=== PATIENT | male | born 1965 | race Caucasian/White ===

== ENCOUNTER 2016-09-28 10:49 | Inpatient (IN) | payer OTHER, BC ==
[~2016-09-28] VITALS: Ht 172.7 cm; Wt 132.9 kg
[2016-09-28] MEDS ORDERED: OPTIRAY 350 100 ML VIAL HMH IV ONE (10:50)
[2016-09-28] MEDS ORDERED: NEB-ALBUTEROL 2.5 MG/3 ML INH ONE ×3 (12:49)
[2016-09-28] MEDS ORDERED: METHYLPRED SOD SUCC 125 MG/2 ML VIAL ONE (13:10)
[2016-09-28] MEDS ORDERED: ONDANSETRON 4 MG VIAL IV PRN (15:50)
[2016-09-28] MEDS ORDERED: SALINE FLUSH 10 ML FLUSH PRN (15:50)
[2016-09-28] MEDS ORDERED: BISACODYL EC 5 MG TAB PO PRN (15:50)
[2016-09-28] MEDS ORDERED: ALU/MAG/SIM 30 ML UDC PO PRN (15:50)
[2016-09-28] MEDS ORDERED: MAG HYDROX 30 ML UDC PO PRN (15:50)
[2016-09-28] MEDS ORDERED: ACETAMINOPHEN 325 MG TAB PO PRN (15:50)
[2016-09-28] MEDS ORDERED: BISACODYL 10 MG SUPP RECTAL PRN (15:50)
[2016-09-28] MEDS ORDERED: DUONEB INH ONE (16:57)
[2016-09-28 17:12] VITALS: RESP 20
[2016-09-28 17:18] VITALS: BP_SYST 108; BP_SYST 112; RESP 18; TEMP 98.1
[2016-09-28 17:19] VITALS: Ht 172.7 cm; Wt 132.9 kg
[2016-09-28] MEDS ORDERED: PNEUMO VAC 25 MCG/0.5 ML VL IM.VACC ONE (17:25)
[2016-09-28] MEDS: METHYLPRED SOD SUCC 40 MG VIAL IV SCH ×2 (18:30→23:48)
[2016-09-28 19:15] VITALS: BP_SYST 131; RESP 20; TEMP 97.6
[2016-09-28] MEDS: DUONEB INH SCH ×2 (20:14→23:35)
[2016-09-28] MEDS: NEB-BUDESONIDE 0.5 MG INH SCH (20:14)
[2016-09-28] MEDS: NEB-BROVANA 15 MCG/2 ML INH SCH (20:14)
[2016-09-28] MEDS ORDERED: FAMOTIDINE 20 MG TAB PO SCH (21:00)
[2016-09-28] MEDS: MONTELUKAST 10 MG TAB PO SCH (21:42)
[2016-09-28] MEDS: Cetirizine/PSE 12-Hour Tab PO SCH (21:42)
[2016-09-28] MEDS: LACTOBACILLUS ACIDOPH CAP PO SCH (21:42)
[2016-09-28] MEDS: SALINE FLUSH 10 ML FLUSH SCH (21:43)
[2016-09-28 22:58] VITALS: BP_SYST 108; RESP 18; TEMP 97.2
[2016-09-29 02:02] VITALS: BP_SYST 110; RESP 20; TEMP 97.5
[2016-09-29] MEDS: DUONEB INH SCH ×6 (03:00→23:24)
[2016-09-29] MEDS ORDERED: PANTOPRAZOLE 20 MG TAB PO SCH (07:00)
[2016-09-29] MEDS: NEB-BUDESONIDE 0.5 MG INH SCH ×2 (07:30→19:13)
[2016-09-29] MEDS: NEB-BROVANA 15 MCG/2 ML INH SCH ×2 (07:30→19:13)
[2016-09-29] MEDS: SALINE FLUSH 10 ML FLUSH SCH ×2 (07:43→21:35)
[2016-09-29 07:44] VITALS: BP_SYST 123; RESP 20; TEMP 97.6
[2016-09-29] MEDS: SODIUM CHLORIDE 0.9% FLUSH BAG 500 ML IV SCH (07:44)
[2016-09-29] MEDS: METHYLPRED SOD SUCC 40 MG VIAL IV SCH ×3 (07:44→23:24)
[2016-09-29] MEDS ORDERED: LISINOPRIL/HCTZ 20/12.5 TAB PO SCH (09:00)
[2016-09-29] MEDS: LACTOBACILLUS ACIDOPH CAP PO SCH ×2 (10:53→21:35)
[2016-09-29] MEDS: Cetirizine/PSE 12-Hour Tab PO SCH ×2 (10:54→21:35)
[2016-09-29] MEDS: FLUTICASONE 0.05% NA BTL NARE EACH SCH (10:58)
[2016-09-29 11:17] VITALS: BP_SYST 117; RESP 18; TEMP 97.9
[2016-09-29] MEDS: SUCRALFATE 1GM/10ML SUSP PO SCH (15:56)
[2016-09-29] MEDS: PANTOPRAZOLE 40 MG TAB PO SCH (15:56)
[2016-09-29 16:07] VITALS: BP_SYST 124; RESP 20; TEMP 97.7
[2016-09-29 19:23] VITALS: BP_SYST 96; RESP 20; TEMP 97.5
[2016-09-29] MEDS: Finasteride 5 MG TAB PO SCH (21:34)
[2016-09-29] MEDS: MONTELUKAST 10 MG TAB PO SCH (21:35)
[2016-09-29] MEDS: TAMSULOSIN 0.4 MG CAP PO SCH (21:35)
[2016-09-29 22:49] VITALS: BP_SYST 118; RESP 20; TEMP 98.2
[2016-09-30] MEDS: DUONEB INH SCH ×2 (02:18→07:31)
[2016-09-30 03:30] VITALS: BP_SYST 109; RESP 20; TEMP 97.7
[2016-09-30] MEDS: SODIUM CHLORIDE 0.9% FLUSH BAG 500 ML IV SCH (06:00)
[2016-09-30] MEDS: SUCRALFATE 1GM/10ML SUSP PO SCH ×3 (06:06→16:37)
[2016-09-30] MEDS: PANTOPRAZOLE 40 MG TAB PO SCH ×2 (06:08→16:37)
[2016-09-30 07:29] VITALS: BP_SYST 123; RESP 20; TEMP 94.1
[2016-09-30] MEDS: NEB-BROVANA 15 MCG/2 ML INH SCH ×2 (07:30→18:57)
[2016-09-30] MEDS: NEB-BUDESONIDE 0.5 MG INH SCH ×2 (07:31→18:57)
[2016-09-30] MEDS: SALINE FLUSH 10 ML FLUSH SCH ×2 (09:31→20:00)
[2016-09-30] MEDS: METHYLPRED SOD SUCC 40 MG VIAL IV SCH ×3 (09:32→23:58)
[2016-09-30] MEDS: FLUTICASONE 0.05% NA BTL NARE EACH SCH (09:32)
[2016-09-30] MEDS: LISINOPRIL 20 MG TAB PO SCH (09:33)
[2016-09-30] MEDS: LACTOBACILLUS ACIDOPH CAP PO SCH ×2 (09:33→21:03)
[2016-09-30] MEDS: Cetirizine/PSE 12-Hour Tab PO SCH (09:34)
[2016-09-30] MEDS ORDERED: SOD CHL NASAL SPR 45ML NARE EACH PRN (11:00)
[2016-09-30] MEDS ORDERED: SODIUM CHLORIDE 0.9% 500 ML IV ONE (11:00)
[2016-09-30 11:16] VITALS: BP_SYST 123; RESP 18; TEMP 94.1
[2016-09-30] MEDS: NEB-ALBUTEROL 2.5 MG/3 ML INH SCH ×4 (11:25→23:15)
[2016-09-30 15:43] VITALS: BP_SYST 107; RESP 20; TEMP 97.3
[2016-09-30 19:18] VITALS: BP_SYST 124; RESP 20; TEMP 98
[2016-09-30] MEDS: Finasteride 5 MG TAB PO SCH (21:03)
[2016-09-30] MEDS: TAMSULOSIN 0.4 MG CAP PO SCH (21:03)
[2016-09-30] MEDS: MONTELUKAST 10 MG TAB PO SCH (21:03)
[2016-09-30 22:56] VITALS: BP_SYST 118; RESP 18; TEMP 97.9
[2016-10-01 04:34] VITALS: BP_SYST 121; RESP 18; TEMP 97.7
[2016-10-01] MEDS: SODIUM CHLORIDE 0.9% FLUSH BAG 500 ML IV SCH (06:00)
[2016-10-01] MEDS: PANTOPRAZOLE 40 MG TAB PO SCH ×2 (06:31→16:09)
[2016-10-01] MEDS: SUCRALFATE 1GM/10ML SUSP PO SCH ×3 (06:31→16:09)
[2016-10-01] MEDS: NEB-BROVANA 15 MCG/2 ML INH SCH ×2 (07:00→19:33)
[2016-10-01] MEDS: NEB-BUDESONIDE 0.5 MG INH SCH ×2 (07:01→19:33)
[2016-10-01] MEDS: NEB-ALBUTEROL 2.5 MG/3 ML INH SCH ×6 (07:01→23:05)
[2016-10-01 07:24] VITALS: BP_SYST 123; RESP 18; TEMP 97.6
[2016-10-01] MEDS: FLUTICASONE 0.05% NA BTL NARE EACH SCH (08:44)
[2016-10-01] MEDS: SALINE FLUSH 10 ML FLUSH SCH ×2 (08:44→21:12)
[2016-10-01] MEDS: METHYLPRED SOD SUCC 40 MG VIAL IV SCH (08:44)
[2016-10-01] MEDS: LISINOPRIL 20 MG TAB PO SCH (08:45)
[2016-10-01] MEDS: CETIRIZINE 10 MG TAB PO SCH (08:45)
[2016-10-01] MEDS: LACTOBACILLUS ACIDOPH CAP PO SCH ×2 (08:45→21:11)
[2016-10-01] MEDS ORDERED: MISSING DOSE XX ONE (08:50)
[2016-10-01] MEDS ORDERED: NEB-XOPENEX 1.25 MG/3 ML INH PRN (10:40)
[2016-10-01 11:25] VITALS: BP_SYST 122; RESP 18; TEMP 97.4
[2016-10-01 15:25] VITALS: BP_SYST 122; RESP 18; TEMP 98.1
[2016-10-01 19:19] VITALS: BP_SYST 111; TEMP 98
[2016-10-01] MEDS: MONTELUKAST 10 MG TAB PO SCH (21:11)
[2016-10-01] MEDS: Finasteride 5 MG TAB PO SCH (21:11)
[2016-10-01] MEDS: TAMSULOSIN 0.4 MG CAP PO SCH (21:11)
[2016-10-01] MEDS: PREDNISONE 10 MG TAB PO SCH (21:11)
[2016-10-01 22:59] VITALS: BP_SYST 130; RESP 18; TEMP 98.1
[2016-10-02] MEDS: NEB-ALBUTEROL 2.5 MG/3 ML INH SCH ×4 (02:21→15:31)
[2016-10-02 03:27] VITALS: BP_SYST 128; RESP 18; TEMP 97.6
[2016-10-02] MEDS: SODIUM CHLORIDE 0.9% FLUSH BAG 500 ML IV SCH (06:00)
[2016-10-02] MEDS: SUCRALFATE 1GM/10ML SUSP PO SCH ×2 (06:34→11:00)
[2016-10-02] MEDS: PANTOPRAZOLE 40 MG TAB PO SCH (06:34)
[2016-10-02 07:35] VITALS: BP_SYST 118; RESP 18; TEMP 97.7
[2016-10-02] MEDS: NEB-BROVANA 15 MCG/2 ML INH SCH (07:38)
[2016-10-02] MEDS: NEB-BUDESONIDE 0.5 MG INH SCH (07:38)
[2016-10-02] MEDS: SALINE FLUSH 10 ML FLUSH SCH (09:07)
[2016-10-02] MEDS: FLUTICASONE 0.05% NA BTL NARE EACH SCH (09:08)
[2016-10-02] MEDS: LACTOBACILLUS ACIDOPH CAP PO SCH (09:08)
[2016-10-02] MEDS: LISINOPRIL 20 MG TAB PO SCH (09:09)
[2016-10-02] MEDS: CETIRIZINE 10 MG TAB PO SCH (09:09)
[2016-10-02] MEDS: PREDNISONE 10 MG TAB PO SCH (09:09)
[2016-10-02 11:29] VITALS: BP_SYST 121; RESP 18; TEMP 97.5
[2016-10-02 15:04] VITALS: BP_SYST 115; RESP 20; TEMP 97.4
[2016-10-02 15:22] VITALS: BP_SYST 121; RESP 18; TEMP 97.5
[2016-10-02 15:31] VITALS: BP_SYST 121; RESP 18; TEMP 97.5
== END 2016-10-02 16:00 | disposition home or self-care (01) | DRG 189 ==
LOC: ENRESERVTM → ENRESERVDT → ER 10:49 → ENPENDDIS 15:59 → EMR 15:59 → 4NT 16:36
PROVIDERS: ADMIT Internal Medicine; ATTEND Internal Medicine
DX: J96.01 Acute respiratory failure with hypoxia (principal); Z68.41 Body mass index [BMI] 40.0-44.9, adult; J45.901 Unspecified asthma with (acute) exacerbation; E66.01 Morbid (severe) obesity due to excess calories; E87.1 Hypo-osmolality and hyponatremia; I10 Essential (primary) hypertension; J98.11 Atelectasis; K44.9 Diaphragmatic hernia without obstruction or gangrene; K21.9 Gastro-esophageal reflux disease without esophagitis; T50.2X5A Adverse effect of carbonic-anhydrase inhibitors, benzothiadiazides and other diuretics, initial encounter; Y92.9 Unspecified place or not applicable; L40.9 Psoriasis, unspecified; Z79.51 Long term (current) use of inhaled steroids
CPT/HCPCS: 36415; 36600; 71020; 71260; 80048; 80053; 82553; 82785; 82803; 83880; 84439; 84443; 84484; 85025; 86003; 86606; 87278; 87299; 87804; 90732; 93005; 93306; 94640; 94799; 96374; 99223; 99232; 99233; 99239